=== PATIENT | male | born 1970 | race Caucasian/White ===

== ENCOUNTER 2017-04-17 08:00 | Day surgery (SDC) | payer BC ==
--- NOTE | 2017-04-17 07:40 | HP ---
DATE OF SURGERY: 04/17/2017 HISTORY OF PRESENT ILLNESS: The patient had some rectal bleeding. He had infection drained in the past a year or so ago. He had prior colonoscopy. No pain currently. Family history is negative for colon cancer or inflammatory bowel disease but given his rectal bleeding it was felt he warranted colonoscopy for further evaluation. PAST MEDICAL HISTORY: Low testosterone, essential hypertension, reflux, history of plantar fasciitis in the past. PAST SURGICAL HISTORY: None. MEDICATIONS: He takes some blood pressure medications, stomach pills, meloxicam, and testosterone. He took hydrocodone in the past. ALLERGIES: NKDA. FAMILY HISTORY: Negative in regards to this problem. SOCIAL HISTORY: Denies smoking. REVIEW OF SYSTEMS: Twelve systems reviewed per admission assessment. No chest pain or palpitations other systems negative or noncontributory as above and per preadmission questionnaire. PHYSICAL EXAMINATION: GENERAL: No acute distress. HEENT: Sclerae nonicteric. NECK: No JVD. CHEST: Equal excursion, nonlabored breathing. CVS: Regular rate and rhythm. ABDOMEN: Soft. No peritoneal signs. EXTREMITIES: No significant edema. NEURO: Alert, oriented, moving extremities symmetrically. No gross motor deficits noted. RECTAL: Rectal exam deferred timed to endoscopy. IMPRESSION: Rectal bleeding in need of colonoscopy. I feel he is a candidate. He had a rectal infection that is healed at this time. He was shown the risk sheet and explained the procedure in detail but not limited to bleeding or infection. Risk of bowel injury or perforation possibly requiring open procedure, risk of missed or nondiagnosis or incomplete exam possibly requiring barium enema, other studies or procedures, general risk of anesthesia or sedation but not limited to. He understands and agrees to the planned procedure and will proceed with outpatient colonoscopy for rectal bleeding.
[~2017-04-17 08:00] MED LIST: Lactated Ringers 1,000 ML IV ONE; Lactated Ringers 1,000 ML IV SCH
[2017-04-17] MEDS ORDERED: DIPRIVAN 200 MG/20 ML IV ONE (08:01)
[2017-04-17] MEDS ORDERED: Versed 2 MG/2 ML Injection IV ONE (08:01)
[2017-04-17] MEDS ORDERED: Lactated Ringers 1,000 ML IV ONE (10:12)
[2017-04-17] MEDS ORDERED: TORAdol 30 mg Injection IV ONE (11:10)
[2017-04-17 12:27] VITALS: O2SAT 96
[2017-04-17 12:38] VITALS: BP 150/109; PULSE 72
--- NOTE | 2017-04-18 08:32 | OP ---
SURGERY DATE/TIME: 04/17/2017 1020 PREOPERATIVE DIAGNOSIS: Rectal bleeding. POSTOPERATIVE DIAGNOSES: 1) Poor prep limiting exam. 2) Diverticulosis. 3) Small internal and external hemorrhoids. 4) Very small raised lesion versus hyperplastic lesion versus hyperplasia of mucosa of the sigmoid colon. PROCEDURES: Colonoscopy to cecum with hot biopsy, very small raised lesion rectosigmoid colon. SURGEON: Dr. David Aguilar. ANESTHESIA: MAC. ESTIMATED BLOOD LOSS: Minimal. INDICATIONS: As noted above. Risks and benefits explained in detail but not limited to and consent obtained. DESCRIPTION OF PROCEDURE AND FINDINGS: The patient is taken to the operating room. MAC anesthesia introduced. After official time out and no disagreement with planned procedure, a digital rectal exam did not reveal any rectal masses. He had some small internal and external hemorrhoids. Video colonoscope inserted and passed up the tortuous sigmoid, descending, transverse and ascending colon. With the aid of external pressure around appendiceal orifice and cecum. Prep overall was poor with some liquidy semi-solid and some solid stool very much limiting the exam for small lesions. Suction irrigated as well as possible but did limit the exam for small lesions. On withdrawal of the scope there were no signs of any large polyps, masses or obstructing lesions. He did have some diverticulosis. Back in the rectosigmoid colon there was a very small raised vague lesion whether this was just simple hyperplasia of mucosa versus early hyperplastic versus early true polyp was removed with hot biopsy forceps with brief bursts of cautery. Good hemostasis noted. Otherwise he had some internal and external hemorrhoids. There were no signs of any large polyps, masses or obstructing lesions. The scope was withdrawn. The patient tolerated the procedure well. It was felt he could continue on high fiber diet to titrate soft bulky bowel movements. Findings discussed with the family out in the waiting area. Should the final path be benign likely recommend follow up colonoscopy in five years given his poor prepped colon limiting the exam.
== END 2017-04-17 11:55 | disposition home or self-care (01) ==
LOC: SDC 08:00
PROVIDERS: ATTEND Surgery
PROC: 0DBN8ZX Excision of Sigmoid Colon, Via Natural or Artificial Opening Endoscopic, Diagnostic (ICD-10-PCS; principal; 2017-04-17)
DX: K57.90 Diverticulosis of intestine, part unspecified, without perforation or abscess without bleeding (principal); K62.5 Hemorrhage of anus and rectum; K64.4 Residual hemorrhoidal skin tags; K64.8 Other hemorrhoids; K63.9 Disease of intestine, unspecified; I10 Essential (primary) hypertension
CPT/HCPCS: 00812; 88305; J1885; J2250; J2704